=== PATIENT | male | born 1980 | race Caucasian/White ===

== ENCOUNTER 2022-03-30 14:33 | Emergency (ER) | payer OTHER, SELFPAY ==
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
[2022-03-30 14:36] VITALS: BP 136/90; PULSE 108; RESP 16; TEMP 36.8; O2SAT 100
== END 2022-03-30 14:47 | disposition home or self-care (01) ==
PROVIDERS: Emergency Provider Nurse Practitioner Family; PCP Family Medicine
DX: S10.93XA Contusion of unspecified part of neck, initial encounter (principal); S13.9XXA Sprain of joints and ligaments of unspecified parts of neck, initial encounter; W20.1XXA Struck by object due to collapse of building, initial encounter
CPT/HCPCS: 99283